=== PATIENT | male | born 1985 | race African-American/Black ===

== ENCOUNTER 2018-01-29 23:52 | Emergency (ER) | payer MEDICAID, OTHER ==
[~2018-01-29] VITALS: Ht 185.4 cm; Wt 82.0 kg
[2018-01-30] MEDS ORDERED: KETOROLAC 30MG/ML VIAL IV STA (00:27)
[2018-01-30] MEDS ORDERED: TETANUS, DIPHTHERIA, PERTUSSIS VAC/PF 0.5ML (>7YR OLD) IM ONE (00:30)
[2018-01-30] MEDS ORDERED: CEFAZOLIN 1000MG PREMIX 50 ML IV ONE (00:30)
[2018-01-30 01:15] LABS: BASOPHILS % 0.7 % (0.0-2.0); EOSINOPHILS % 2.1 % (0.0-5.0); HEMATOCRIT. 44.8 % (42.0-52.0); HEMOGLOBIN. 14.8 g/dL (14.0-18.0); LYMPHOCYTES % 24.5 % (20.0-50.0); MEAN CORPUSCULAR HEMOGLOBIN 28.7 pg (28.0-32.0); MEAN CORPUSCULAR VOLUME 86.5 fL (80.0-94.0); MONOCYTES % 12.2 % (2.0-8.0); NEUTROPHILS % 60.5 % (40.0-76.0); RED BLOOD CELL COUNT 5.17 mill/uL (4.7-6.1); RED CELL DISTRIBUTION WIDTH 16.7 % (11.6-14.6)
[2018-01-30 01:18] LABS: CHLORIDE 102 mEq/L (98-107)
[2018-01-30 01:38] LABS: MEAN PLATELET VOLUME 10.1 fl (7.4-10.4); PLATELET 212 x1000/uL (130-400)
[2018-01-30 02:40] LABS: INR 1.1; PARTIAL THROMBOPLASTIN TIME 23.4 sec (23.4-31.0)
[2018-01-30 06:31] VITALS: BP 153/74
== END 2018-01-30 06:52 | disposition short-term general hospital (02) ==
LOC: ER 23:52
DX: S02.69XA Fracture of mandible of other specified site, initial encounter for closed fracture (principal); Y00.XXXA Assault by blunt object, initial encounter; Y93.89 Activity, other specified; Y92.89 Other specified places as the place of occurrence of the external cause; Y99.8 Other external cause status
CPT/HCPCS: 36415; 70450; 70486; 71045; 80053; 83690; 85025; 85610; 85730; 86850; 86900; 86901; 90471; 90715; 96365; 96375; 99285; J0690; J1885; Z7610